=== PATIENT | male | born 1965 | race Caucasian/White ===

== ENCOUNTER 2016-11-19 06:26 | Inpatient (IN) | payer BC ==
[2016-11-19] MEDS ORDERED: Sodium Chloride 0.9% 1,000 ML IV ONE (06:40)
[2016-11-19] MEDS ORDERED: Ketorolac 30 MG/ML SDV IVPUSH ONE (06:40)
--- NOTE | 2016-11-19 06:55 | EDM.PDOC ---
ED HPI GENERAL MEDICAL PROBLEM - General Chief Complaint: Abdominal Pain Stated Complaint: ABDOMINAL PAIN Time Seen by Provider: 11/19/16 06:53 Source of Information: Reports: Patient - History of Present Illness INITIAL COMMENTS - FREE TEXT/NARRATIVE: HISTORY AND PHYSICAL: History of present illness: [] Patient presents with left lower quadrant pain for last 24 hours and decreased caliber stools, pain is 1/10 without movement any movement increases pain to 8/10 No fever nausea vomiting chills sweats no chest pain shortness breath headache dizziness palpitation no urine symptoms Review of systems: As per history of present illness and below otherwise all systems reviewed and negative. Past medical history: As per history of present illness and as reviewed below otherwise noncontributory. Surgical history: As per history of present illness and as reviewed below otherwise noncontributory. Social history: No reported history of drug or alcohol abuse. Family history: As per history of present illness and as reviewed below otherwise noncontributory. Physical exam: HEENT: Atraumatic, normocephalic, pupils reactive, negative for conjunctival pallor or scleral icterus, mucous membranes moist, throat clear, neck supple, nontender, trachea midline. Lungs: Clear to auscultation, breath sounds equal bilaterally, chest nontender. Heart: S1S2, regular, negative for clicks, rubs, or JVD. Abdomen: Soft, nondistended, nontender right lower quadrant however left lower quadrant exquisitely tender. Negative for masses or hepatosplenomegaly. Negative for costovertebral tenderness. Pelvis: Stable nontender. Genitourinary: Deferred. Rectal: Deferred. Extremities: Atraumatic, negative for cords or calf pain. Neurovascular unremarkable. Neuro: Awake, alert, oriented. Cranial nerves II through XII unremarkable. Cerebellum unremarkable. Motor and sensory unremarkable throughout. Exam nonfocal. Diagnostics: [] Lab as below CT abdomen pelvis with contrast Therapeutics: [] Toradol 30 mg IV 1 L normal saline bolus Cipro 400 mg IV Flagyl 500 mg IV Admitted to [facility] Impression: [] Lower quadrant pain Diverticulitis Concern for malignancy on CT Definitive disposition and diagnosis as appropriate pending reevaluation and review of above. Lower Abdomen Pain Score (Numeric/FACES): 6 - Related Data Allergies Allergy/AdvReac Type Severity Reaction Status Date / Time erythromycin base Allergy Rash Verified 05/04/14 13:20 [Erythromycin Base] Home Meds: Home Meds Pantoprazole Sodium 40 tab PO ACBREAKFAST 04/02/15 [History] Past Medical History Other Gastrointestinal History: Heartburn/GERD, full feeling at times, Heme + stool Other Musculoskeletal History: Fractured maybe some small bones toes, fingers never treated - Infectious Disease History Infectious Disease History: Reports: Chicken Pox - Past Surgical History Other Musculoskeletal Surgeries/Procedures:: middle finger disarticulation Social & Family History - Family History Family Medical History: Noncontributory - Tobacco Use Smoking Status *Q: Never Smoker Second Hand Smoke Exposure: No - Caffeine Use Caffeine Use: Reports: Coffee - Alcohol Use Days Per Week of Alcohol Use: 0 Number of Drinks Per Day: 0 Total Drinks Per Week: 0 - Recreational Drug Use Recreational Drug Use: No Drug Use in Last 12 Months: No ED ROS GENERAL - Review of Systems Review Of Systems: ROS reveals no pertinent complaints other than HPI. ED EXAM, GENERAL - Physical Exam Exam: See Below Course - Vital Signs Last Recorded V/S: Last Vital Signs Temp 36.6 C 11/19/16 06:30 Pulse 92 11/19/16 06:30 Resp 19 11/19/16 06:30 BP 120/78 11/19/16 06:30 Pulse Ox 92 L 11/19/16 06:30 - Orders/Labs/Meds Orders: Active Orders 24 hr Category Date Time Status Abdomen Pelvis w wo Cont [CT] Stat Exams 11/19/16 06:55 Taken Sodium Chloride 0.9% [Normal Saline] 1,000 ml Med 11/19/16 08:15 Ordered IV STAT metroNIDAZOLE/Normal Saline [Flagyl 500 MG in NS 100 ML Med 11/19/16 08:12 Ordered ] 500 mg Premix Bag 1 bag IV ONETIME Medication Orders Metronidazole 500 mg/ Premix 100 mls @ 100 mls/hr IV ONETIME ONE Stop: 11/19/16 09:11 Sodium Chloride (Normal Saline) 1,000 mls @ 125 mls/hr IV STAT BENITO Labs: Laboratory Tests 11/19/16 11/19/16 11/19/16 Range/Units 06:30 06:30 06:30 WBC 20.18 H (4.0-11.0) K/uL RBC 5.01 (4.50-5.90) M/uL Hgb 15.8 (13.0-17.0) g/dL Hct 45.5 (38.0-50.0) % MCV 90.8 (80.0-98.0) fL MCH 31.5 (27.0-32.0) pg MCHC 34.7 (31.0-37.0) g/dL RDW Std Deviation 45.8 (28.0-62.0) fl RDW Coeff of Dhruv 14 (11.0-15.0) % Plt Count 231 (150-400) K/uL MPV 9.10 (7.40-12.00) fL Neut % (Auto) 77.3 (48.0-80.0) % Lymph % (Auto) 8.7 L (16.0-40.0) % [place] % (Auto) 13.4 (0.0-15.0) % Eos % (Auto) 0.4 (0.0-7.0) % Baso % (Auto) 0.2 (0.0-1.5) % Neut # (Auto) 15.6 H (1.4-5.7) K/uL Lymph # (Auto) 1.8 (0.6-2.4) K/uL [place] # (Auto) 2.7 H (0.0-0.8) K/uL Eos # (Auto) 0.1 (0.0-0.7) K/uL Baso # (Auto) 0.1 (0.0-0.1) K/uL Nucleated RBC % 0.0 /100WBC Nucleated RBCs # 0 K/uL Sodium 137 (136-146) mmol/L Potassium 4.1 (3.5-5.1) mmol/L Chloride 107 (98-110) mmol/L Carbon Dioxide 20 L (21-31) mmol/L BUN 13 (6.0-23.0) mg/dL Creatinine 1.1 (0.6-1.5) mg/dL Est Cr Clr Drug Dosing 81.11 mL/min Estimated GFR (MDRD) > 60.0 ml/min Glucose 109 (60-110) mg/dL Calcium 9.6 (8.8-10.8) mg/dL Total Bilirubin 1.3 (0.1-1.5) mg/dL AST 15 (5-40) IU/L ALT 15 (8-54) IU/L Alkaline Phosphatase 66 (40-150) Total Protein 7.8 (6.0-8.0) g/dL Albumin 4.5 (3.5-5.0) g/dL Globulin 3.3 (2.0-3.5) g/dL Albumin/Globulin Ratio 1.4 (1.3-2.8) Lipase (7-80) U/L Urine Color YELLOW Urine Appearance CLEAR Urine pH 6.0 (5.0-8.0) Ur Specific [place] 1.025 (1.001-1.035) Urine Protein NEGATIVE (NEGATIVE) mg/dL Urine Glucose (UA) NEGATIVE (NEGATIVE) mg/dL Urine Ketones 15 H (NEGATIVE) mg/dL Urine Occult Blood SMALL H (NEGATIVE) Urine Nitrite NEGATIVE (NEGATIVE) Urine Bilirubin NEGATIVE (NEGATIVE) Urine Urobilinogen 0.2 (<2.0) EU/dL Ur Leukocyte Esterase NEGATIVE (NEGATIVE) Urine RBC 0-2 (0-2/HPF) Urine WBC 1-2 (0-5/HPF) Ur Epithelial Cells RARE (NONE-FEW) Urine Bacteria FEW (NEGATIVE) Urine Mucus LIGHT (NONE-MOD) 11/19/16 Range/Units 06:30 WBC (4.0-11.0) K/uL RBC (4.50-5.90) M/uL Hgb (13.0-17.0) g/dL Hct (38.0-50.0) % MCV (80.0-98.0) fL MCH (27.0-32.0) pg MCHC (31.0-37.0) g/dL RDW Std Deviation (28.0-62.0) fl RDW Coeff of Dhruv (11.0-15.0) % Plt Count (150-400) K/uL MPV (7.40-12.00) fL Neut % (Auto) (48.0-80.0) % Lymph % (Auto) (16.0-40.0) % [place] % (Auto) (0.0-15.0) % Eos % (Auto) (0.0-7.0) % Baso % (Auto) (0.0-1.5) % Neut # (Auto) (1.4-5.7) K/uL Lymph # (Auto) (0.6-2.4) K/uL [place] # (Auto) (0.0-0.8) K/uL Eos # (Auto) (0.0-0.7) K/uL Baso # (Auto) (0.0-0.1) K/uL Nucleated RBC % /100WBC Nucleated RBCs # K/uL Sodium (136-146) mmol/L Potassium (3.5-5.1) mmol/L Chloride (98-110) mmol/L Carbon Dioxide (21-31) mmol/L BUN (6.0-23.0) mg/dL Creatinine (0.6-1.5) mg/dL Est Cr Clr Drug Dosing mL/min Estimated GFR (MDRD) ml/min Glucose (60-110) mg/dL Calcium (8.8-10.8) mg/dL Total Bilirubin (0.1-1.5) mg/dL AST (5-40) IU/L ALT (8-54) IU/L Alkaline Phosphatase (40-150) Total Protein (6.0-8.0) g/dL Albumin (3.5-5.0) g/dL Globulin (2.0-3.5) g/dL Albumin/Globulin Ratio (1.3-2.8) Lipase 12 (7-80) U/L Urine Color Urine Appearance Urine pH (5.0-8.0) Ur Specific [place] (1.001-1.035) Urine Protein (NEGATIVE) mg/dL Urine Glucose (UA) (NEGATIVE) mg/dL Urine Ketones (NEGATIVE) mg/dL Urine Occult Blood (NEGATIVE) Urine Nitrite (NEGATIVE) Urine Bilirubin (NEGATIVE) Urine Urobilinogen (<2.0) EU/dL Ur Leukocyte Esterase (NEGATIVE) Urine RBC (0-2/HPF) Urine WBC (0-5/HPF) Ur Epithelial Cells (NONE-FEW) Urine Bacteria (NEGATIVE) Urine Mucus (NONE-MOD) Meds: Medications Generic Name Dose Route Start Last Admin Trade Name Freq PRN Reason Stop Dose Admin Metronidazole 500 mg/ Premix 100 mls @ 100 mls/hr 11/19/16 08:12 IV 11/19/16 09:11 ONETIME ONE Sodium Chloride 1,000 mls @ 125 mls/hr 11/19/16 08:15 Normal Saline IV STAT BENITO Discontinued Medications Generic Name Dose Route Start Last Admin Trade Name Freq PRN Reason Stop Dose Admin Sodium Chloride 1,000 mls @ 999 mls/hr 11/19/16 06:40 11/19/16 06:47 Normal Saline IV 11/19/16 07:40 999 mls/hr .Bolus ONE Administration Iopamidol 100 ml 11/19/16 07:03 11/19/16 07:05 Isovue Multipack-370 (76%) IVPUSH 11/19/16 07:04 100 ml ONETIME STA Administration Ketorolac Tromethamine 30 mg 11/19/16 06:40 11/19/16 06:47 Toradol IVPUSH 11/19/16 06:41 30 mg ONETIME ONE Administration Departure - Departure Time of Disposition: 08:16 Disposition: Admitted As Inpatient 65 Condition: fair Clinical Impression: Diverticulitis - Discharge Information Forms: ED Department Discharge - My Orders Last 24 Hours: My Active Orders 11/19/16 06:55 Abdomen Pelvis w wo Cont [CT] Stat 11/19/16 08:12 metroNIDAZOLE/Normal Saline [Flagyl 500 MG in NS 100 ML] 500 mg Premix Bag 1 bag IV ONETIME 11/19/16 08:15 Sodium Chloride 0.9% [Normal Saline] 1,000 ml IV STAT - Assessment/Plan Last 24 Hours: My Active Orders 11/19/16 06:55 Abdomen Pelvis w wo Cont [CT] Stat 11/19/16 08:12 metroNIDAZOLE/Normal Saline [Flagyl 500 MG in NS 100 ML] 500 mg Premix Bag 1 bag IV ONETIME 11/19/16 08:15 Sodium Chloride 0.9% [Normal Saline] 1,000 ml IV STAT
[2016-11-19] MEDS ORDERED: Iopamidol 755 MG/ML 500 ML Multipack Bottle IVPUSH STA (07:03)
[2016-11-19 07:08] LABS: CHLORIDE,CL 107 mmol/L (98-110); SODIUM,NA 137 mmol/L (136-146)
[2016-11-19] MEDS ORDERED: metroNIDAZOLE/Normal Saline 500 MG in Premix Bag 1 BAG IV ONE (08:12)
[2016-11-19] MEDS: Sodium Chloride 0.9% 1,000 ML IV SCH ×3 (09:13→22:28)
[2016-11-19] MEDS: Ciprofloxacin in D5W 400 MG in Premix Bag 1 BAG IV SCH ×4 (10:15→22:24)
[2016-11-19] MEDS ORDERED: Morphine 2 MG/ML Syringe IVPUSH PRN (13:56)
[2016-11-19] MEDS ORDERED: Ondansetron 4 MG/2 ML SDV IVPUSH PRN (13:56)
--- NOTE | 2016-11-19 14:05 | PCM.HP ---
H&P History of Present Illness - History of Present Illness Initial Comments - Free Text/Narative: 51 yo male who presents with several day history of lower abdominal pain, fevers and chills. He reports intermittent diarrhea and constipation. He was evaluated in the ED and noted to have a WBC of 20,180. CT scan of abdomen reported acute diverticultis of sigmoid colon. Lower Abdomen Pain Score (Numeric/FACES): 4 - Related Data Allergies/Adverse Reactions: Allergies Allergy/AdvReac Type Severity Reaction Status Date / Time erythromycin base Allergy Rash Verified 05/04/14 13:20 [Erythromycin Base] Home Medications: Home Meds Pantoprazole Sodium 40 tab PO ACBREAKFAST 04/02/15 [History] Past Medical History Other Gastrointestinal History: Heartburn/GERD, full feeling at times, Heme + stool Other Musculoskeletal History: Fractured maybe some small bones toes, fingers never treated - Infectious Disease History Infectious Disease History: Reports: Chicken Pox - Past Surgical History Other Musculoskeletal Surgeries/Procedures:: middle finger disarticulation Social & Family History - Family History Family Medical History: Noncontributory - Tobacco Use Smoking Status *Q: Never Smoker Second Hand Smoke Exposure: No - Caffeine Use Caffeine Use: Reports: Coffee, Soda - Alcohol Use Days Per Week of Alcohol Use: 0 Number of Drinks Per Day: 0 Total Drinks Per Week: 0 - Recreational Drug Use Recreational Drug Use: No Drug Use in Last 12 Months: No H&P Review of Systems - Review of Systems: Review Of Systems: See Below General: Reports: No Symptoms HEENT: Reports: No Symptoms Pulmonary: Reports: No Symptoms Cardiovascular: Reports: No Symptoms Gastrointestinal: Reports: Abdominal Pain. Denies: Black Stool, Bloody Stool, Hematemesis, Hematochezia, Melena, Mucous in Stool Genitourinary: Reports: No Symptoms Musculoskeletal: Reports: No Symptoms Skin: Reports: No Symptoms Psychiatric: Reports: No Symptoms Neurological: Reports: No Symptoms Hematologic/Lymphatic: Reports: No Symptoms Immunologic: Reports: No Symptoms Exam - Exam Exam: See Below - Vital Signs Vital Signs: Last Vital Signs Temp 37.3 C 11/19/16 12:00 Pulse 92 11/19/16 12:00 Resp 14 11/19/16 12:00 BP 107/69 11/19/16 12:00 Pulse Ox 95 11/19/16 12:00 Weight: 89.358 kg - Exam Neck: Supple, Trachea Midline, 2 Lungs: Clear to Auscultation, Normal Respiratory Effort Cardiovascular: Regular Rate, Regular Rhythm Abdomen: Normal Bowel Sounds, Soft, Tenderness (left lower quadrant). No: Rigidity, Rebound Extremities: Normal Inspection. No: Edema - Patient Data Result Diagrams: 11/19/16 06:30 11/19/16 06:30 *Q Meaningful Use (ADM) - VTE *Q VTE Criteria *Q: - Stroke *Q Stroke Criteria *Q: - AMI *Q AMI Criteria *Q: Problem List Initiated/Reviewed/Updated: Yes Orders Last 24hrs: Active Orders 24 hr Category Date Time Status Antiembolic Devices [RC] PER UNIT ROUTINE Care 11/19/16 13:59 Ordered Intake and Output [RC] QSHIFT Care 11/19/16 13:57 Ordered Oxygen Therapy [RC] PRN Care 11/19/16 13:56 Ordered Up ad Devora [RC] ASDIRECTED Care 11/19/16 13:56 Ordered VTE/DVT Education [RC] PER UNIT ROUTINE Care 11/19/16 13:56 Ordered Vital Signs [RC] Q4H Care 11/19/16 13:56 Ordered Clear Liquid Diet [DIET] Diet 11/19/16 Dinner Ordered BASIC METABOLIC PANEL,BMP [CHEM] AM Lab 11/20/16 05:11 Ordered BASIC METABOLIC PANEL,BMP [CHEM] AM Lab 11/21/16 05:11 Ordered BASIC METABOLIC PANEL,BMP [CHEM] AM Lab 11/22/16 05:11 Ordered CBC WITH AUTO DIFF [HEME] AM Lab 11/20/16 05:11 Ordered CBC WITH AUTO DIFF [HEME] AM Lab 11/21/16 05:11 Ordered CBC WITH AUTO DIFF [HEME] AM Lab 11/22/16 05:11 Ordered CULTURE STOOL + CAMPY+SHIGATOX [RM] Routine Lab 11/19/16 13:59 Uncollected Clostridium Difficile [CDIFF TOX A+B] [OP] Routine Lab 11/19/16 13:59 Uncollected Ciprofloxacin in D5W [Cipro in D5W 400 MG/200 ML] 400 Med 11/19/16 10:15 Active mg Premix Bag 1 bag IV Q12H Morphine Med 11/19/16 13:56 Ordered 2 mg IVPUSH Q3H PRN Ondansetron [Zofran] Med 11/19/16 13:56 Ordered 4 mg IVPUSH Q4H PRN metroNIDAZOLE/Normal Saline [Flagyl 500 MG in NS 100 ML Med 11/19/16 18:00 Active ] 500 mg Premix Bag 1 bag IV QID Sequential Compression Device [OM.PC] Per Unit Routine Oth 11/19/16 13:57 Ordered Resuscitation Status Routine Resus Stat 11/19/16 13:56 Ordered Medication Orders Sodium Chloride (Normal Saline) 1,000 mls @ 125 mls/hr IV STAT BENITO Last Admin: 11/19/16 10:16 Dose: 125 mls/hr Infusion: 11/19/16 10:16 Dose: 125 mls/hr Admin: 11/19/16 09:13 Dose: 125 mls/hr Ciprofloxacin/Dextrose 400 mg/ (Premix) 200 mls @ 200 mls/hr IV Q12H BENITO Last Admin: 11/19/16 10:15 Dose: 200 mls/hr Metronidazole 500 mg/ Premix 100 mls @ 100 mls/hr IV QID BENITO Morphine Sulfate (Morphine) 2 mg IVPUSH Q3H PRN PRN Reason: Pain (severe 7-10) Stop: 11/20/16 13:58 Ondansetron HCl (Zofran) 4 mg IVPUSH Q4H PRN PRN Reason: Nausea Assessment/Plan Comment:: 51 yo male admitted with acute sigmoid diverticulitis. We will treat with bowel rest, IV fluids and Ciprofloxacin and Flagyl. Radiologist recommend followup imaging to rule out underlying malignancy.
[2016-11-19] MEDS: metroNIDAZOLE/Normal Saline 500 MG in Premix Bag 1 BAG IV SCH ×2 (17:07→23:37)
[2016-11-20 06:08] LABS: CHLORIDE,CL 110 mmol/L (98-110); SODIUM,NA 136 mmol/L (136-146)
[2016-11-20] MEDS: metroNIDAZOLE/Normal Saline 500 MG in Premix Bag 1 BAG IV SCH ×4 (06:42→23:46)
--- NOTE | 2016-11-20 08:22 | PCM.PN ---
- General Info Date of Service: 11/20/16 Admission Dx/Problem (Free Text): Acute diverticulitis Subjective Update: Feeling slightly improved today. Had some nausea overnight, received Zofran and felt better. This morning he has tolerated CL well without nausea. He continues to have watery stools, not black or bloody in appearance. loom winder tender to LLQ. Denies chest pain or SOB. Functional Status: Reports: pain controlled, tolerating diet, ambulating, urinating - Review of Systems General: Reports: No Symptoms. Denies: Fever HEENT: Reports: no symptoms. Denies: sinus congestion, sore throat, rhinitis Pulmonary: Reports: no symptoms. Denies: shortness of breath Cardiovascular: Reports: No Symptoms. Denies: Chest Pain Gastrointestinal: Reports: Abdominal pain (improving, LLQ), Diarrhea, Flatus, Nausea (overnight, but has had none since midnight) Genitourinary: Reports: no symptoms. Denies: dysuria, frequency, burning Musculoskeletal: Reports: no symptoms Skin: Reports: no symptoms Neurological: Reports: No Symptoms Psychiatric: Reports: no symptoms - Patient Data Vitals - most recent: Last Vital Signs Temp 98.1 F 11/20/16 08:00 Pulse 77 11/20/16 08:00 Resp 20 11/20/16 08:00 BP 106/70 11/20/16 08:00 Pulse Ox 92 L 11/20/16 08:00 Weight - most recent: 89.358 kg I&O - last 24 hours: Intake & Output 11/19/16 11/20/16 11/20/16 22:59 06:59 14:59 Intake Total 1550 550 Output Total 250 1020 Balance 1300 -470 Lab Results last 24 hrs: Laboratory Results - last 24 hr 11/20/16 11/20/16 Range/Units 05:34 05:34 WBC 13.90 H (4.0-11.0) K/uL RBC 4.29 L (4.50-5.90) M/uL Hgb 13.2 (13.0-17.0) g/dL Hct 39.1 (38.0-50.0) % MCV 91.1 (80.0-98.0) fL MCH 30.8 (27.0-32.0) pg MCHC 33.8 (31.0-37.0) g/dL RDW Std Deviation 46.2 (28.0-62.0) fl RDW Coeff of Dhruv 14 (11.0-15.0) % Plt Count 226 (150-400) K/uL MPV 9.20 (7.40-12.00) fL Neut % (Auto) 72.8 (48.0-80.0) % Lymph % (Auto) 14.0 L (16.0-40.0) % [place] % (Auto) 12.2 (0.0-15.0) % Eos % (Auto) 0.9 (0.0-7.0) % Baso % (Auto) 0.1 (0.0-1.5) % Neut # (Auto) 10.1 H (1.4-5.7) K/uL Lymph # (Auto) 2.0 (0.6-2.4) K/uL [place] # (Auto) 1.7 H (0.0-0.8) K/uL Eos # (Auto) 0.1 (0.0-0.7) K/uL Baso # (Auto) 0.0 (0.0-0.1) K/uL Nucleated RBC % 0.0 /100WBC Nucleated RBCs # 0 K/uL Sodium 136 (136-146) mmol/L Potassium 3.9 (3.5-5.1) mmol/L Chloride 110 (98-110) mmol/L Carbon Dioxide 19 L (21-31) mmol/L BUN 10 (6.0-23.0) mg/dL Creatinine 1.0 (0.6-1.5) mg/dL Est Cr Clr Drug Dosing 89.22 mL/min Estimated GFR (MDRD) > 60.0 ml/min Glucose 97 (60-110) mg/dL Calcium 8.6 L (8.8-10.8) mg/dL Albert Results last 24 hrs: Microbiology 11/19/16 16:20 Clostridium difficile Toxin A&B (M) - Final Stool / Feces Negative for C.Diff Toxin/AG 11/19/16 16:20 Campylobacter Antigen Assay - Final Stool / Feces NEGATIVE CAMPYLOBACTER AG Med Orders - Current: Current Medications Sodium Chloride (Normal Saline) 1,000 mls @ 125 mls/hr IV STAT BENITO Last Admin: 11/19/16 22:28 Dose: 125 mls/hr Ciprofloxacin/Dextrose 400 mg/ (Premix) 200 mls @ 200 mls/hr IV Q12H BENITO Last Admin: 11/19/16 22:24 Dose: 200 mls/hr Metronidazole 500 mg/ Premix 100 mls @ 100 mls/hr IV QID BENITO Last Admin: 11/20/16 06:42 Dose: 100 mls/hr Morphine Sulfate (Morphine) 2 mg IVPUSH Q3H PRN PRN Reason: Pain (severe 7-10) Stop: 11/20/16 13:58 Ondansetron HCl (Zofran) 4 mg IVPUSH Q4H PRN PRN Reason: Nausea Last Admin: 11/19/16 23:36 Dose: 4 mg Discontinued Medications Sodium Chloride (Normal Saline) 1,000 mls @ 999 mls/hr IV .Bolus ONE Stop: 11/19/16 07:40 Last Admin: 11/19/16 06:47 Dose: 999 mls/hr Metronidazole 500 mg/ Premix 100 mls @ 100 mls/hr IV ONETIME ONE Stop: 11/19/16 09:11 Last Admin: 11/19/16 08:18 Dose: 100 mls/hr Iopamidol (Isovue Multipack-370 (76%)) 100 ml IVPUSH ONETIME STA Stop: 11/19/16 07:04 Last Admin: 11/19/16 07:05 Dose: 100 ml Ketorolac Tromethamine (Toradol) 30 mg IVPUSH ONETIME ONE Stop: 11/19/16 06:41 Last Admin: 11/19/16 06:47 Dose: 30 mg - Exam Quality Assessment: DVT prophylaxis. No: supplemental oxygen General: alert, oriented, cooperative HEENT: Pupils equal, Pupils reactive, EOMI, Mucous membr. moist/pink Neck: supple Lungs: Clear to auscultation, Normal respiratory effort Cardiovascular: Regular Rate, Regular Rhythm Abdomen: bowel sounds present, soft, no distension, tenderness (LLQ) Extremities: no edema, normal pulses Skin: warm, dry, intact Psy/Mental Status: alert, normal affect, normal mood - Problem List & Annotations (1) Diverticulitis SNOMED Code(s): 652625810 Code(s): K57.92 - DVTRCLI OF INTEST, PART UNSP, W/O PERF OR ABSCESS W/O BLEED Status: Acute Current Visit: Yes Qualifiers: Diverticulitis site: large intestine Diverticulitis bleeding: without bleeding Diverticulitis complication: without perforation or abscess Qualified Code(s): K57.32 - Diverticulitis of large intestine without perforation or abscess without bleeding (2) GERD (gastroesophageal reflux disease) SNOMED Code(s): 208081504 Code(s): K21.9 - GASTRO-ESOPHAGEAL REFLUX DISEASE WITHOUT ESOPHAGITIS Status: Chronic Current Visit: Yes Qualifiers: Esophagitis presence: esophagitis presence not specified Qualified Code(s) : K21.9 - Gastro-esophageal reflux disease without esophagitis - Problem List Review Problem List Initiated/Reviewed/Updated: Yes - Plan Plan:: 51 yo male admitted with acute sigmoid diverticulitis. 1. Acute sigmoid diverticulitis: Leukocytosis improving. Continue with IV fluids and Ciprofloxacin and Flagyl. Tolerating CL diet, will monitor this am and may start FL this afternoon. Radiologist recommend followup imaging to rule out underlying malignancy. Last colonoscopy was 2 years ago, and he reports this was negative. VTE prophylaxis: SCDs Dispo: 2 days
[2016-11-20] MEDS: Ciprofloxacin in D5W 400 MG in Premix Bag 1 BAG IV SCH ×4 (09:19→21:16)
[2016-11-20] MEDS: Sodium Chloride 0.9% 1,000 ML IV SCH ×2 (09:19→20:46)
--- NOTE | 2016-11-20 15:13 | CT ---
EXAM DATE: 11/19/16 PATIENT'S AGE: 51 Patient: EYAD EMANUEL Facility: [place], [place] Site . Site : 1965 Study: CT Abdomen/Pelvis W/ and W/O Cont [id number]/[id number] 7:42:39 AM Ordering Physician: Lucho White Final Report: INDICATION: Left lower quadrant abdominal pain. Comparison: None. Technique: CT abdomen and pelvis without intravenous contrast; CT abdomen and pelvis with intravenous contrast; coronal and sagittal reformats. Findings: Acute diverticulitis involving the sigmoid colon; long segment. No evidence of pelvic abscess. No pneumoperitoneum. No evidence of intestinal obstruction. Tiny amount of free fluid identified surrounding the sigmoid colon. No abnormal intra pulmonary nodular densities through the lung bases . Interstitial pulmonary fibrosis through the lung bases. Normal size cardiac silhouette without any evidence of pericardial effusion. Subcentimeter low-density dome of the liver as noted on slice 32 of series the 301 representing a cyst. No focal hepatic or splenic pathology . No pancreatic pathology. Gallbladder is unremarkable. No adrenal pathology. Symmetric perfusion of both the kidneys without any obstructive uropathy or perinephric pathology. No retroperitoneal lymphadenopathy. No evidence of abdominal ascites. Normal appendix. CT study of the pelvis is otherwise unremarkable. Impression: 1. Acute diverticulitis sigmoid colon; relatively long segment; without any evidence of intra-abdominal abscess or pneumoperitoneum. 2. Followup imaging is needed until the diverticulitis completely clears to rule out an underlying malignancy. 3. Tiny amount of free fluid in the pelvis. 4. Normal appendix. 5. No evidence of urinary tract obstruction or kidney stones. 6. Minimal interstitial pulmonary fibrosis through the lung bases. Please note that all CT scans at this facility use dose modulation, iterative reconstruction, and/or weight-based dosing when appropriate to reduce radiation dose to as low as reasonably achievable. Dictated by Clyde Davis MD @ Nov 19 2016 7:57AM (Electronic Signature) Report Signed by Proxy. [facility]
[2016-11-21 05:24] LABS: CHLORIDE,CL 115 mmol/L (98-110); SODIUM,NA 140 mmol/L (136-146)
[2016-11-21] MEDS: metroNIDAZOLE/Normal Saline 500 MG in Premix Bag 1 BAG IV SCH (05:28)
[2016-11-21] MEDS: Sodium Chloride 0.9% 1,000 ML IV SCH (07:23)
[2016-11-21 08:06] VITALS: BP 123/82
--- NOTE | 2016-11-21 08:57 | PCM.DCSUM1 ---
Discharge Summary - Hospital Course Brief History: This 51 year old male presented to the ED on 11/19/2016 with several day history of lower abdominal pain, fevers and chills. He reported intermittent diarrhea and constipation. He was evaluated in the ED and noted to have a WBC of 20,180. CT of abdomen reported acute diverticultis of sigmoid colon. - Discharge Data Discharge Date: 11/21/16 Discharge Disposition: Home, Self-Care 01 Condition: Good - Discharge Diagnosis/Problem(s) (1) Diverticulitis SNOMED Code(s): 824622041 ICD Code: K57.92 - DVTRCLI OF INTEST, PART UNSP, W/O PERF OR ABSCESS W/O BLEED Status: Acute Current Visit: Yes Qualifiers: Diverticulitis site: large intestine Diverticulitis bleeding: without bleeding Diverticulitis complication: without perforation or abscess Qualified Code(s): K57.32 - Diverticulitis of large intestine without perforation or abscess without bleeding (2) GERD (gastroesophageal reflux disease) SNOMED Code(s): 810631819 ICD Code: K21.9 - GASTRO-ESOPHAGEAL REFLUX DISEASE WITHOUT ESOPHAGITIS Status: Chronic Current Visit: Yes Qualifiers: Esophagitis presence: esophagitis presence not specified Qualified Code(s) : K21.9 - Gastro-esophageal reflux disease without esophagitis - Patient Instructions Diet: GI Soft/Low Residue/Low Fiber Showering/Bathing: May Shower Notify Provider of: Fever, Increased Pain, Swelling and Redness, Drainage, Nausea and/or Vomiting - Discharge Plan Prescriptions/Med Rec: Ciprofloxacin HCl [Cipro] 500 mg PO BID #24 tablet metroNIDAZOLE [Flagyl] 500 mg PO Q8H #36 tablet Home Medications: Home Meds Pantoprazole Sodium 40 tab PO ACBREAKFAST 04/02/15 [History] Ciprofloxacin HCl [Cipro] 500 mg PO BID #24 tablet 11/21/16 [Rx] metroNIDAZOLE [Flagyl] 500 mg PO Q8H #36 tablet 11/21/16 [Rx] Patient Handouts: Diverticulitis, Ciprofloxacin tablets, Low-Fiber Diet, Metronidazole tablets or capsules Referrals: Giovanni Beatty MD [Primary Care Provider] - 11/28/16 9:45 am Lucio Marlow MD [Physician] - 12/13/16 9:00 am - Discharge Summary/Plan Comment DC Time >30 min.: No Discharge Summary/Plan Comment: Discharge diagnoses: Acute sigmoid diverticulitis Jacques was admitted and treated with bowel rest, IVFs along with Ciprofloxacin and Flagyl. He improved gradually and leukocytosis resolved. Pain is well tolerated now and he is tolerating [place] diet. He is no longer nauseated and has been afebrile. We will discharge him home today with 12 more days of Flagyl and Ciprofloxacin. Will arrange follow up appointments with PCP, Dr. Beatty and General Surgeon Dr. Marlow. Radiologist recommended follow up CT scan after acute diverticulitis has cleared to completely rule out malignancy. Do recommended colonoscopy after acute flare of diverticulitis. He is to continue soft GI low fiber diet and slowly increasing to regular diet. Then restart high fiber diet in 2 weeks. - General Info Date of Service: 11/21/16 Admission Dx/Problem (Free Text: Acute diverticulitis Subjective Update: Denies any chest pain or SOB. Tolerating [place] diet, has slight tenderness to LLQ, but this continues to improve. Having slight diarrhea still, not bloody. No further nausea or fevers. Eager for discharge today. Functional Status: Reports: pain controlled, tolerating diet, ambulating, urinating - Review of Systems General: Reports: No Symptoms. Denies: Fever, Weakness, Fatigue HEENT: Reports: no symptoms. Denies: headaches, sinus congestion, sore throat Pulmonary: Reports: no symptoms. Denies: shortness of breath, cough, sputum Cardiovascular: Reports: No Symptoms. Denies: Chest Pain, Palpitations, Edema Gastrointestinal: Reports: Abdominal pain (only tenderness to palpation to LLQ) , Diarrhea, Flatus. Denies: Constipation, Nausea, Vomiting Genitourinary: Reports: no symptoms. Denies: dysuria, frequency, burning, pain , urgency Musculoskeletal: Reports: no symptoms Skin: Reports: no symptoms Neurological: Reports: No Symptoms Psychiatric: Reports: no symptoms - Patient Data Vitals - Most Recent: Last Vital Signs Temp 97.3 F 11/21/16 08:00 Pulse 80 11/21/16 08:00 Resp 20 11/21/16 08:00 BP 123/82 11/21/16 08:00 Pulse Ox 95 11/21/16 08:00 Weight - Most Recent: 89.358 kg I&O - Last 24 hours: Intake & Output 05/11/21/16 11/21/16 22:59 06:59 14:59 Intake Total 4005 890 1000 Output Total 1800 1800 Balance 2205 -910 1000 Lab Results - Last 24 hrs: Laboratory Results - last 24 hr 11/21/16 11/21/16 Range/Units 04:28 04:28 WBC 9.84 (4.0-11.0) K/uL RBC 4.02 L (4.50-5.90) M/uL Hgb 12.5 L (13.0-17.0) g/dL Hct 36.6 L (38.0-50.0) % MCV 91.0 (80.0-98.0) fL MCH 31.1 (27.0-32.0) pg MCHC 34.2 (31.0-37.0) g/dL RDW Std Deviation 46.3 (28.0-62.0) fl RDW Coeff of Dhruv 14 (11.0-15.0) % Plt Count 231 (150-400) K/uL MPV 9.10 (7.40-12.00) fL Neut % (Auto) 64.8 (48.0-80.0) % Lymph % (Auto) 19.6 (16.0-40.0) % [place] % (Auto) 12.7 (0.0-15.0) % Eos % (Auto) 2.3 (0.0-7.0) % Baso % (Auto) 0.6 (0.0-1.5) % Neut # (Auto) 6.4 H (1.4-5.7) K/uL Lymph # (Auto) 1.9 (0.6-2.4) K/uL [place] # (Auto) 1.3 H (0.0-0.8) K/uL Eos # (Auto) 0.2 (0.0-0.7) K/uL Baso # (Auto) 0.1 (0.0-0.1) K/uL Nucleated RBC % 0.0 /100WBC Nucleated RBCs # 0 K/uL Sodium 140 (136-146) mmol/L Potassium 4.2 (3.5-5.1) mmol/L Chloride 115 H (98-110) mmol/L Carbon Dioxide 17 L (21-31) mmol/L BUN 9 (6.0-23.0) mg/dL Creatinine 0.8 (0.6-1.5) mg/dL Est Cr Clr Drug Dosing 111.53 mL/min Estimated GFR (MDRD) > 60.0 ml/min Glucose 90 (60-110) mg/dL Calcium 8.3 L (8.8-10.8) mg/dL KANDACE Results - Last 24 hrs: Microbiology 11/19/16 16:20 Stool Culture - Final Stool / Feces NO SALMONELLA, SHIGELLA,OR E.COLI O157 ISOLATED Campylobacter Antigen Assay - Final NEGATIVE CAMPYLOBACTER AG - Final NEGATIVE FOR SHIGA TOXIN 1 - Final NEGATIVE FOR SHIGA TOXIN 2 Med Orders - Current: Current Medications Sodium Chloride (Normal Saline) 1,000 mls @ 125 mls/hr IV STAT [facility] Last Admin: 11/21/16 07:23 Dose: 125 mls/hr Ciprofloxacin/Dextrose 400 mg/ (Premix) 200 mls @ 200 mls/hr IV Q12H [facility] Last Admin: 11/20/16 21:16 Dose: 200 mls/hr Metronidazole 500 mg/ Premix 100 mls @ 100 mls/hr IV QID [facility] Last Admin: 11/21/16 05:28 Dose: 100 mls/hr Ondansetron HCl (Zofran) 4 mg IVPUSH Q4H PRN PRN Reason: Nausea Last Admin: 11/19/16 23:36 Dose: 4 mg Discontinued Medications Sodium Chloride (Normal Saline) 1,000 mls @ 999 mls/hr IV .Bolus ONE Stop: 11/19/16 07:40 Last Admin: 11/19/16 06:47 Dose: 999 mls/hr Metronidazole 500 mg/ Premix 100 mls @ 100 mls/hr IV ONETIME ONE Stop: 11/19/16 09:11 Last Admin: 11/19/16 08:18 Dose: 100 mls/hr Iopamidol (Isovue Multipack-370 (76%)) 100 ml IVPUSH ONETIME STA Stop: 11/19/16 07:04 Last Admin: 11/19/16 07:05 Dose: 100 ml Ketorolac Tromethamine (Toradol) 30 mg IVPUSH ONETIME ONE Stop: 11/19/16 06:41 Last Admin: 11/19/16 06:47 Dose: 30 mg Morphine Sulfate (Morphine) 2 mg IVPUSH Q3H PRN PRN Reason: Pain (severe 7-10) Stop: 11/20/16 13:58 - Exam General: Reports: alert, oriented, cooperative Neck: Reports: supple Lungs: Reports: Clear to auscultation, Normal respiratory effort Cardiovascular: Reports: Regular Rate, Regular Rhythm Abdomen: Reports: bowel sounds present, soft, no distension, tenderness (slight noted to LLQ) Extremities: Reports: no edema Skin: Reports: warm, dry, intact Neurological: Reports: no new focal deficit Psy/Mental Status: Reports: alert, normal affect, normal mood *Q Meaningful Use (DIS) - VTE *Q VTE Criteria *Q: - Stroke *Q Stroke Criteria *Q: - AMI *Q AMI Criteria *Q:
== END 2016-11-21 10:50 | disposition home or self-care (01) | DRG 244 ==
LOC: MW.ED 06:26 → MW.MS 08:23
PROVIDERS: ADMIT Internal Medicine; ATTEND Internal Medicine
DX: K57.32 Diverticulitis of large intestine without perforation or abscess without bleeding (principal); K21.9 Gastro-esophageal reflux disease without esophagitis; Z79.899 Other long term (current) drug therapy; Z88.1 Allergy status to other antibiotic agents
CPT/HCPCS: 36415; 74178; 74178-26; 80048; 80053; 81001; 83690; 85025; 87046; 87324; 87899; 96361; 96365; 96375; 99285; 99285-25; J0744; J1885; J2405; J7040; Q9967

== ENCOUNTER 2017-02-13 11:21 | Day surgery (SDC) | payer BC ==
--- NOTE | 2017-02-13 11:09 | PCM.PREANE ---
Preanesthetic Assessment - Anesthesia/Transfusion/Family Hx Anesthesia History: Prior Anesthesia Without Reaction Other Type of Anesthesia Reaction Comment: Denies any known problem in past Family History of Anesthesia Reaction: No Transfusion History: No Prior Transfusion(s) - Review of Systems General: No Symptoms Pulmonary: No Symptoms Cardiovascular: No Symptoms Gastrointestinal: No Symptoms Neurological: No Symptoms Other: Reports: None - Physical Assessment NPO Status Date: 02/12/17 Height: 1.78 m Weight: 90.265 kg ASA Class: 2 Mental Status: Alert & Oriented x3 Dentition: Reports: Serena(s) ROM/Head Extension: Full Lungs: Clear to Auscultation, Normal Respiratory Effort Cardiovascular: Regular Rate, Regular Rhythm - Allergies Allergies/Adverse Reactions: Allergies Allergy/AdvReac Type Severity Reaction Status Date / Time erythromycin base Allergy Rash Verified 02/07/17 17:24 [Erythromycin Base] - Acknowledgements Anesthesia Type Planned: MAC Pt an Appropriate Candidate for the Planned Anesthesia: Yes Alternatives and Risks of Anesthesia Discussed w Pt/Guardian: Yes Pt/Guardian Understands and Agrees with Anesthesia Plan: Yes PreAnesthesia Questionnaire Other HEENT History: uses reading glasses Respiratory History: Reports: Asthma Other Respiratory History: allergy induced Gastrointestinal History: Reports: Diverticulosis, GERD Other Gastrointestinal History: Heartburn/GERD, full feeling at times, Heme + stool Genitourinary History: Reports: None Musculoskeletal History: Reports: None Other Musculoskeletal History: Fractured maybe some small bones toes, fingers never treated Neurological History: Reports: None Psychiatric History: Reports: None Endocrine/Metabolic History: Reports: None Hematologic History: Reports: None Immunologic History: Reports: None Oncologic (Cancer) History: Reports: None Dermatologic History: Reports: None - Infectious Disease History Infectious Disease History: Reports: Chicken Pox - Past Surgical History Head Surgeries/Procedures: Reports: None HEENT Surgical History: Reports: None Respiratory Surgical History: Reports: None GI Surgical History: Reports: Colonoscopy, EGD Male Surgical History: Reports: Vasectomy Endocrine Surgical History: Reports: None Neurological Surgical History: Reports: None Musculoskeletal Surgical History: Reports: Arthroscopic Knee, Other (See Below) Other Musculoskeletal Surgeries/Procedures:: 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 - SUBSTANCE USE Smoking Status *Q: Never Smoker Second Hand Smoke Exposure: No Days Per Week of Alcohol Use: 0 Number of Drinks Per Day: 0 Total Drinks Per Week: 0 Recreational Drug Use History: No - HOME MEDS Home Medications: Home Meds Pantoprazole Sodium 40 tab PO ACBREAKFAST 04/02/15 [History] Fluticasone/Salmeterol [Advair Diskus 250-50] 1 puff INH BID PRN 02/07/17 [ History] - CURRENT (IN HOUSE) MEDS Current Meds: Current Medications Lactated Ringer's (Ringers, Lactated) 1,000 mls @ 125 mls/hr IV ASDIRECTED BENITO Discontinued Medications Fentanyl (Sublimaze) Confirm Administered Dose 100 mcg .ROUTE .STK-MED ONE Stop: 02/13/17 08:13 Lidocaine (Xylocaine-Mpf 2%) Confirm Administered Dose 5 ml .ROUTE .STK-MED ONE Stop: 02/13/17 08:13 Midazolam HCl (Versed 1 Mg/Ml) Confirm Administered Dose 2 mg .ROUTE .STK-MED ONE Stop: 02/13/17 08:13 Propofol (Diprivan 20 Ml) Confirm Administered Dose 400 mg .ROUTE .STK-MED ONE Stop: 02/13/17 08:13
[~2017-02-13 11:21] MED LIST: Lactated Ringers 1,000 ML IV SCH; Lidocaine 2% 5 ML SDV ONE; Midazolam 1 MG/ML 2 ML SDV ONE; Propofol 200 MG/20 ML SDV ONE; fentaNYL 100 MCG/2 ML SDV ONE
[2017-02-13] MEDS ORDERED: Propofol 200 MG/20 ML SDV ONE ×3 (12:18→12:37)
--- NOTE | 2017-02-13 13:07 | PCM.OPNOTE ---
- General Post-Op/Procedure Note Date of Surgery/Procedure: 02/13/17 Operative Procedure(s): colonoscopy w bx Findings: dict [id number] Pre Op Diagnosis: diverticulitis Post-Op Diagnosis: colon polyp Anesthesia Technique: Moderate Sedation Primary Surgeon: Lucio Marlow Pathology: 2 X 3 mm sessile polyp at 30 cm when scope out or 70 cm when scope in; Complications: None Condition: Good
[2017-02-13 13:45] VITALS: BP 128/87
--- NOTE | 2017-02-13 13:54 | PCM.POSTAN ---
POST ANESTHESIA ASSESSMENT - MENTAL STATUS Mental Status: Alert, Oriented - RESPIRATORY Respiratory Status: Respiratory Rate WNL, Airway Patent, O2 Saturation Stable - CARDIOVASCULAR CV Status: Pulse Rate WNL, Blood Pressure Stable - GASTROINTESTINAL GI Status: No Symptoms - PAIN Pain Score: 0 - POST OP HYDRATION Hydration Status: Adequate & Stable
--- NOTE | 2017-02-13 13:55 | PCM48HPAN ---
Post Anesthesia Note - EVALUATION WITHIN 48HRS OF ANESTHETIC Vital Signs in Normal Range: Yes Patient Participated in Evaluation: Yes Respiratory Function Stable: Yes Airway Patent: Yes Cardiovascular Function Stable: Yes Hydration Status Stable: Yes Pain Control Satisfactory: Yes Nausea and Vomiting Control Satisfactory: Yes Mental Status Recovered: Yes
--- NOTE | 2017-02-13 14:48 | OR ---
SURGEON: Lucio Marlow MD DATE OF PROCEDURE: 02/13/2017 PREOPERATIVE DIAGNOSIS: Diverticulitis, resolving. POSTOPERATIVE DIAGNOSIS: Diverticulosis. PROCEDURE PERFORMED: Colonoscopy with biopsy. DESCRIPTION OF PROCEDURE: The patient was taken to the endoscopy room. A time out was called, patient identified, and procedure identified. Diprivan was then administrated. Patient went from awake to sleep, hearing doctor talking or door closing is normal. Perineum inspection and digital examination were then performed. A well- lubricated colonoscope was gently inserted through the rectum, advanced past the rectosigmoid junction, the descending colon, splenic flexure, transverse colon, hepatic flexure, ascending colon, arrived to the cecum. Cecum was identified as dictated in the finding. Then the scope was carefully withdrawn while attention was paid to the mucosal surface for any abnormality. Air will be sucked out during the scope withdrawal. At the rectum, retroflexed to examine any rectal diseases, fistula or hemorrhoids. During mucosal examination, abnormality or polyp was noted; picture taken and biopsy performed. Patient tolerated procedure well. There were no intraoperative complications, and Dr. Marlow was present throughout the whole procedure. FINDINGS: 1. The patient is easily sedated with MOTEL KEEPER and Diprivan. The patient is soundly snoring. 2. The patient's bowel prep was average with large amount of bubbles obscuring the mucosa and the study is compromised because of the bubbles. 3. The patient's colon was rather redundant in the sigmoid requiring several maneuvers of the patient and moved the patient to the back and otherwise in order to go to the cecum. Cecum indicated by ileocecal fold, one-to-one indentation, light immittance, and appendix orifice the mucosa, same examined, upon scope pulling out with constant irrigation, and the patient has moderate amount of diverticulosis on the left colon. No signs or symptoms of diverticulitis, inflammation, stricture, ulceration, bleeding, or AV malformation. The patient's diverticulosis stretches all the way to the splenic flexure and also 2 small polyps right in the area of 70 cm when the scope go in and was removed with cold biopsy forceps and also it is at the same spot as 30/35 cm when the scope come off. Two 3 mm sessile polyps removed with biopsy forceps. Otherwise, the whole colon do not have other growth, mass, inflammation, or stricture, and the patient has external hemorrhoid and mild internal hemorrhoids. The patient would benefit from repeat colonoscopy in 3-5 years from today depends on the pathology report of the polyp or if the patient clinically indicated otherwise. As always, thank you for the kind referral. CLAIRE / STEPHANIE /[id number]
== END 2017-02-13 14:05 | disposition home or self-care (01) ==
LOC: MW.SDS 11:21
PROVIDERS: ATTEND Surgery
PROC: 0DBG8ZX Excision of Left Large Intestine, Via Natural or Artificial Opening Endoscopic, Diagnostic (ICD-10-PCS; principal; 2017-02-13)
DX: D12.4 Benign neoplasm of descending colon (principal); K57.30 Diverticulosis of large intestine without perforation or abscess without bleeding; K64.4 Residual hemorrhoidal skin tags; K64.8 Other hemorrhoids; K21.9 Gastro-esophageal reflux disease without esophagitis; J45.20 Mild intermittent asthma, uncomplicated; Z88.1 Allergy status to other antibiotic agents; Z79.899 Other long term (current) drug therapy; Z98.52 Vasectomy status; Z98.890 Other specified postprocedural states
CPT/HCPCS: 45380; 88305; J2250; J3010; J7120; 00810; J2704

== ENCOUNTER 2019-04-30 07:26 | Day surgery (SDC) | payer BC ==
[~2019-04-30 07:26] MED LIST changes: -Lidocaine 2% 5 ML SDV ONE; -Midazolam 1 MG/ML 2 ML SDV ONE; -Propofol 200 MG/20 ML SDV ONE; -fentaNYL 100 MCG/2 ML SDV ONE
[2019-04-30] MEDS ORDERED: Propofol 200 MG/20 ML SDV ONE ×2 (07:29→08:18)
[2019-04-30] MEDS ORDERED: Ondansetron 4 MG/2 ML SDV ONE (07:29)
[2019-04-30] MEDS ORDERED: fentaNYL 100 MCG/2 ML SDV ONE (07:29)
[2019-04-30] MEDS ORDERED: Midazolam 1 MG/ML 2 ML SDV ONE (07:29)
--- NOTE | 2019-04-30 08:13 | PCM.PREANE ---
Preanesthetic Assessment - Anesthesia/Transfusion/Family Hx Anesthesia History: Prior Anesthesia Without Reaction Other Type of Anesthesia Reaction Comment: Denies any known problem in past Family History of Anesthesia Reaction: No Transfusion History: No Prior Transfusion(s) Intubation History: Unknown - Review of Systems General: No Symptoms Pulmonary: No Symptoms Cardiovascular: No Symptoms Gastrointestinal: Other (heme + stool,dysphagia (improving), h/o colon polyp, GERD, h/o diverticulitis) Neurological: No Symptoms Other: Reports: None - Physical Assessment NPO Status Date: 04/29/19 NPO Status Time: 21:00 Vital Signs: Last Vital Signs Temp 36.2 C 04/30/19 07:35 Pulse 93 04/30/19 07:35 Resp 16 04/30/19 07:35 BP 118/81 04/30/19 07:35 Pulse Ox 94 L 04/30/19 07:35 Height: 5 ft 10 in Weight: 92.533 kg ASA Class: 2 Mental Status: Alert & Oriented x3 Airway Class: Mallampati = 2 Dentition: Reports: Normal Dentition Thyro-Mental Finger Breadths: 3 Mouth Opening Finger Breadths: 3 ROM/Head Extension: Full Lungs: Clear to Auscultation, Normal Respiratory Effort Cardiovascular: Regular Rate, Regular Rhythm - Allergies Allergies/Adverse Reactions: Allergies Allergy/AdvReac Type Severity Reaction Status Date / Time erythromycin base Allergy Rash Verified 04/25/19 07:54 [Erythromycin Base] - Blood Blood Available: No - Anesthesia Plan Pre-Op Medication Ordered: None - Acknowledgements Anesthesia Type Planned: MAC Pt an Appropriate Candidate for the Planned Anesthesia: Yes Alternatives and Risks of Anesthesia Discussed w Pt/Guardian: Yes Pt/Guardian Understands and Agrees with Anesthesia Plan: Yes PreAnesthesia Questionnaire HEENT History: Reports: Other (See Below) Other HEENT History: uses reading glasses Cardiovascular History: Reports: None Respiratory History: Reports: Asthma (moderate) Other Respiratory History: allergy induced Gastrointestinal History: Reports: Colon Polyp, Diverticulosis, GERD Other Gastrointestinal History: hx diverticulitis Genitourinary History: Reports: None Musculoskeletal History: Reports: None Neurological History: Reports: None Psychiatric History: Reports: None Endocrine/Metabolic History: Reports: None Hematologic History: Reports: None Immunologic History: Reports: None Oncologic (Cancer) History: Reports: None Dermatologic History: Reports: None - Infectious Disease History Infectious Disease History: Reports: Chicken Pox - Past Surgical History Head Surgeries/Procedures: Reports: None HEENT Surgical History: Reports: None Cardiovascular Surgical History: Reports: None Respiratory Surgical History: Reports: None GI Surgical History: Reports: Colonoscopy, EGD Male Surgical History: Reports: Vasectomy Endocrine Surgical History: Reports: None Neurological Surgical History: Reports: None Musculoskeletal Surgical History: Reports: Arthroscopic Knee, Other (See Below) Other Musculoskeletal Surgeries/Procedures:: 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 Oncologic Surgical History: Reports: None Dermatological Surgical History: Reports: None - SUBSTANCE USE Smoking Status *Q: Never Smoker - HOME MEDS Home Medications: Home Meds Pantoprazole Sodium 40 tab PO ACBREAKFAST 04/02/15 [History] Fluticasone/Salmeterol [Advair Diskus 250-50] 1 puff INH BID 02/07/17 [History] Albuterol Sulfate [Proair Hfa] 1 - 2 puff INH ASDIRECTED PRN 04/25/19 [History] - CURRENT (IN HOUSE) MEDS Current Meds: Current Medications Lactated Ringer's (Ringers, Lactated) 1,000 mls @ 125 mls/hr IV ASDIRECTED BENITO Last Admin: 04/30/19 07:45 Dose: 125 mls/hr Discontinued Medications Fentanyl (Sublimaze) Confirm Administered Dose 100 mcg .ROUTE .STK-MED ONE Stop: 04/30/19 07:30 Lidocaine HCl (Xylocaine-Mpf 1%) Confirm Administered Dose 5 ml .ROUTE .STK-MED ONE Stop: 04/30/19 07:30 Midazolam HCl (Versed 1 Mg/Ml) Confirm Administered Dose 2 mg .ROUTE .STK-MED ONE Stop: 04/30/19 07:30 Ondansetron HCl (Zofran) Confirm Administered Dose 4 mg .ROUTE .STK-MED ONE Stop: 04/30/19 07:30 Propofol (Diprivan 20 Ml) Confirm Administered Dose 200 mg .ROUTE .STK-MED ONE Stop: 04/30/19 07:30
--- NOTE | 2019-04-30 09:28 | PCM.OPNOTE ---
- General Post-Op/Procedure Note Date of Surgery/Procedure: 04/30/19 Operative Procedure(s): egd w bx. colonoscopy w snare Findings: see dict [id number] Pre Op Diagnosis: hx colon polyp/diverticulitis; gerd Post-Op Diagnosis: Same Anesthesia Technique: Moderate Sedation Primary Surgeon: Lucio Marlow Pathology: egd bx colon polyp at 25, cold bx, polyp at 20, snare polypectomy Complications: None Condition: Good
--- NOTE | 2019-04-30 09:44 | PCM.POSTAN ---
POST ANESTHESIA ASSESSMENT - MENTAL STATUS Mental Status: Alert, Oriented - VITAL SIGNS Vital Signs: Last Vital Signs Temp 36.2 C 04/30/19 07:35 Pulse 65 04/30/19 09:36 Resp 15 04/30/19 09:36 BP 107/74 04/30/19 09:36 Pulse Ox 96 04/30/19 09:36 - RESPIRATORY Respiratory Status: Respiratory Rate WNL, Airway Patent, O2 Saturation Stable - CARDIOVASCULAR CV Status: Pulse Rate WNL, Blood Pressure Stable - GASTROINTESTINAL GI Status: No Symptoms - PAIN Pain Score: 0 - POST OP HYDRATION Hydration Status: Adequate & Stable - OBSERVATIONS Free Text/Narrative:: no anesthesia problems
[2019-04-30 09:53] VITALS: BP 121/72; PULSE 62
--- NOTE | 2019-04-30 10:14 | PCM48HPAN ---
Post Anesthesia Note - EVALUATION WITHIN 48HRS OF ANESTHETIC Vital Signs in Normal Range: Yes Patient Participated in Evaluation: Yes Respiratory Function Stable: Yes Airway Patent: Yes Cardiovascular Function Stable: Yes Hydration Status Stable: Yes Pain Control Satisfactory: Yes Nausea and Vomiting Control Satisfactory: Yes Mental Status Recovered: Yes Vital Signs: Last Vital Signs Temp 36.8 C 04/30/19 09:45 Pulse 62 04/30/19 09:45 Resp 16 04/30/19 09:45 BP 121/72 04/30/19 09:45 Pulse Ox 94 L 04/30/19 09:45 - COMMENTS/OBSERVATIONS Free Text/Narrative:: no anesthesia problems
--- NOTE | 2019-04-30 11:34 | OR ---
SURGEON: Lucio Marlow MD DATE OF PROCEDURE: 04/30/2019 PREOPERATIVE DIAGNOSIS: History of colon polyp and diverticulitis and acid reflux. PROCEDURES PERFORMED: Esophagogastroduodenoscopy with biopsy and colonoscopy with snare polypectomy. DESCRIPTION OF PROCEDURE: EGD: The patient was taken to the endoscopy room, and with the COLLEGE PROFESSOR, Diprivan was administered. A well-lubricated EGD scope was gently inserted through the oropharynx, down the esophagus, passing through the gastroesophageal junction, into the stomach. The mucosa was examined upon the passage. Any etiology will be noted. Once in the stomach, we continued to advance to the distal antrum, passed through the pylorus into the second portion of the duodenum. Again, the mucosa was examined for any abnormality and etiology. The scope was then retrieved back to the stomach and then retroflexed to look at the fundus of the stomach. If a biopsy was indicated, we will biopsy the antrum, body, and gastroesophageal junction. The air will be sucked out while the scope is retrieved to reduce the patient's discomfort. The patient tolerated the procedure well. There were no intraoperative complications. Dr. Marlow was present through the whole procedure. Prior to surgery, a time-out had been called, the patient identified, procedure identified and antibiotic administered. The patient was taken to the endoscopy room. A time out was called, patient identified, and procedure identified. Diprivan was then administrated. Patient went from awake to sleep, hearing doctor talking or door closing is normal. Perineum inspection and digital examination were then performed. A well- lubricated colonoscope was gently inserted through the rectum, advanced past the rectosigmoid junction, the descending colon, splenic flexure, transverse colon, hepatic flexure, ascending colon, arrived to the cecum. Cecum was identified as dictated in the finding. Then the scope was carefully withdrawn while attention was paid to the mucosal surface for any abnormality. Air will be sucked out during the scope withdrawal. At the rectum, retroflexed to examine any rectal diseases, fistula or hemorrhoids. During mucosal examination, abnormality or polyp encountered. Using snare equipment, the abnormality or the polyp was then snared off using electrocautery. The patient tolerated procedure well. There were no intraoperative complications, and Dr. Marlow was present throughout the whole procedure. FINDINGS: EGD findings: 1. The patient is easily sedated with COLLEGE PROFESSOR and Diprivan, the patient is soundly snoring. 2. Oropharynx and proximal esophagus are free of disease, stricture, inflammation. Distal esophagus at GE junction at 40 shows very mild salmon- colored change, suggests mild to no acid reflux. Stomach rugae are normal in appearance. Antrum is normal in appearance and duodenum is grossly normal. Retroflexed look at the fundus of the stomach, there is no hiatal hernia. Biopsy done at antrum, body, GE junction at 40 and sucked out the gas while scope pulling out. During the whole study, there is no blood, ulcer, bile, and food particle observed. Colonoscopy findings: 1. The patient is easily sedated with COLLEGE PROFESSOR and Diprivan, the patient is soundly snoring. 2. Bowel prep is average to above average, very little liquid stool, no semi- formed stool, no stool ball. 3. Colon is rather straightforward. Cecum indicated by ileocecal fold, one-to- one indentation, appendiceal orifice. ScopeGuide is pointing south. Light emittance is not observed. Mucosa examined upon scope pulling out. The patient has mild diverticulosis at the left colon. No signs or symptoms of diverticulitis. The patient has two polyps, one sessile at distance 25, biopsied, removed with cold biopsy forceps. Another one at 20 and removed with snare polypectomy, captured and sent for pathology. The patient has mild internal hemorrhoids and mild external hemorrhoids. The patient would benefit from repeat colonoscopy in 3 years from today because of history of colon polyp and also a polyp at this time or if clinically indicated otherwise. CLAIRE / STEPHANIE /[id number]
== END 2019-04-30 10:18 | disposition home or self-care (01) ==
LOC: MW.SDS 07:26
PROVIDERS: ATTEND Surgery
DX: Z12.11 Encounter for screening for malignant neoplasm of colon (principal); K21.0 Gastro-esophageal reflux disease with esophagitis; K63.5 Polyp of colon; K57.30 Diverticulosis of large intestine without perforation or abscess without bleeding; K64.8 Other hemorrhoids; K64.4 Residual hemorrhoidal skin tags; J45.40 Moderate persistent asthma, uncomplicated; Z88.1 Allergy status to other antibiotic agents
CPT/HCPCS: 43239; 45385; 88305; 88312; J2001; J2250; J2405; J2704; J3010; J7120; 00813

== ENCOUNTER 2021-01-05 21:07 | Emergency (ER) | payer BC ==
[2021-01-05] MEDS ORDERED: Ondansetron 4 MG/2 ML SDV IVPUSH ONE (21:28)
[2021-01-05] MEDS ORDERED: Sodium Chloride 0.9% 10 ML Syringe FLUSH PRN (21:28)
[2021-01-05] MEDS ORDERED: Sodium Chloride 0.9% 2.5 ML Syringe FLUSH PRN (21:28)
[2021-01-05] MEDS ORDERED: Sodium Chloride 0.9% 1,000 ML IV ONE (21:30)
--- NOTE | 2021-01-05 21:32 | EDM.PDOC ---
ED HPI GENERAL MEDICAL PROBLEM - General Chief Complaint: Gastrointestinal Problem Stated Complaint: NAUSEA VOMITTING Time Seen by Provider: 01/05/21 21:23 - History of Present Illness INITIAL COMMENTS - FREE TEXT/NARRATIVE: History of present illness: [] The patient had abdominal pain and distention beginning last night. He has been nauseated all day but not vomited. He has no appetite today. He had multiple liquid stools in the morning. He is continue to have some loose stools this afternoon. He has a history for 5 years ago of diverticulitis and was admitted for an entire week. He has had no surgery on his abdomen or genitals. Review of systems: As per history of present illness and below otherwise all systems reviewed and negative. Past medical history: As per history of present illness and as reviewed below otherwise noncontributory. Surgical history: As per history of present illness and as reviewed below otherwise noncontributory. Social history: No reported history of drug or alcohol abuse. Family history: As per history of present illness and as reviewed below otherwise noncontributory. Physical exam: Constitutional - well developed, well-nourished and in no acute distress HEENT - normocephalic, no evidence of trauma - external nose and mouth normal - no mass in neck and no JVD - mucosae moist EYES - full EOM, PERRL, no icterus - no evidence of inflammation, injection, or drainage Respiratory - no respiratory distress, equal bilateral expansion, lungs clear to auscultation and no abnormal lung sounds Cardiovascular - Regular Rhythm with S1 and S2 appreciated and no murmur, gallop or rub. GI - abdomen soft without distension or organomegaly -extremely hyperactive bowel sounds - no guard or rebound but diffuse vague minimal tenderness especially in the right lower quadrant. normal external genitalia with no evidence of hernia Musculoskeletal no gross deformity of long bones or joints - no tenderness, swelling or edema Neurologic - Alert and oriented times four - CN II-XII grossly intact - motor sensory and coordination symmetrically normal Psychiatric - appropriate mood and affect with normal thought content Hematologic - No petechiae or purpura - mucosa appropriate color and sclera not pale - normal nail bed color and refill Integument - no rash or evidence of trauma - normal turgor Diagnostics: [] Therapeutics: [] Impression: [] Plan: [] Definitive disposition and diagnosis as appropriate pending reevaluation and review of above. right abdomen Pain Score (Numeric/FACES): 8 - Related Data Allergies Allergy/AdvReac Type Severity Reaction Status Date / Time erythromycin base Allergy Rash Verified 01/05/21 21:19 [Erythromycin Base] Home Meds: Home Meds Pantoprazole Sodium 40 tab PO ACBREAKFAST 04/02/15 [History] Fluticasone/Salmeterol [Advair Diskus 250-50] 1 puff INH BID 02/07/17 [History] Albuterol Sulfate [Proair Hfa] 1 - 2 puff INH ASDIRECTED PRN 04/25/19 [History] Ondansetron [Zofran ODT] 4 mg PO Q6H PRN #10 tab.dis 01/05/21 [Rx] Past Medical History HEENT History: Reports: Other (See Below) Other HEENT History: uses reading glasses Cardiovascular History: Reports: None Respiratory History: Reports: Asthma Other Respiratory History: allergy induced Gastrointestinal History: Reports: Colon Polyp, Diverticulosis, GERD Other Gastrointestinal History: hx diverticulitis Genitourinary History: Reports: None Musculoskeletal History: Reports: None Neurological History: Reports: None Psychiatric History: Reports: None Endocrine/Metabolic History: Reports: None Hematologic History: Reports: None Immunologic History: Reports: None Oncologic (Cancer) History: Reports: None Dermatologic History: Reports: None - Infectious Disease History Infectious Disease History: Reports: Chicken Pox - Past Surgical History Head Surgeries/Procedures: Reports: None HEENT Surgical History: Reports: None Cardiovascular Surgical History: Reports: None Respiratory Surgical History: Reports: None GI Surgical History: Reports: Colonoscopy, EGD Male Surgical History: Reports: Vasectomy Endocrine Surgical History: Reports: None Neurological Surgical History: Reports: None Musculoskeletal Surgical History: Reports: Arthroscopic Knee, Other (See Below) Other Musculoskeletal Surgeries/Procedures:: 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 ED EXAM, GENERAL - Physical Exam Exam: See Below Free Text/Narrative:: My physical exam is in the HPI Course - Vital Signs Last Recorded V/S: Last Vital Signs Temp 36.8 C 01/05/21 21:15 Pulse 97 01/05/21 21:15 Resp 18 01/05/21 21:15 BP 120/82 01/05/21 21:15 Pulse Ox 93 L 01/05/21 21:15 - Orders/Labs/Meds Orders: Active Orders 24 hr Category Date Time Status Sodium Chloride 0.9% [Saline Flush] Med 01/05/21 21:28 Active 10 ml FLUSH ASDIRECTED PRN Sodium Chloride 0.9% [Saline Flush] Med 01/05/21 21:28 Active 2.5 ml FLUSH ASDIRECTED PRN Saline Lock Insert [OM.PC] Stat Oth 01/05/21 21:28 Ordered Medication Orders Sodium Chloride (Sodium Chloride 0.9% 10 Ml Syringe) 10 ml FLUSH ASDIRECTED PRN PRN Reason: Keep Vein Open Sodium Chloride (Sodium Chloride 0.9% 2.5 Ml Syringe) 2.5 ml FLUSH ASDIRECTED PRN PRN Reason: Keep Vein Open Labs: Laboratory Tests 01/05/21 01/05/21 Range/Units 21:30 21:30 WBC 7.48 (4.0-11.0) K/uL RBC 4.85 (4.50-5.90) M/uL Hgb 15.4 (13.0-17.0) g/dL Hct 43.9 (38.0-50.0) % MCV 90.5 (80.0-98.0) fL MCH 31.8 (27.0-32.0) pg MCHC 35.1 (31.0-37.0) g/dL RDW Std Deviation 46.6 (28.0-62.0) fl RDW Coeff of Dhruv 14 (11.0-15.0) % Plt Count 230 (150-400) K/uL MPV 9.10 (7.40-12.00) fL Neut % (Auto) 77.2 (48.0-80.0) % Lymph % (Auto) 12.0 L (16.0-40.0) % [place] % (Auto) 8.3 (0.0-15.0) % Eos % (Auto) 2.4 (0.0-7.0) % Baso % (Auto) 0.1 (0.0-1.5) % Neut # (Auto) 5.8 H (1.4-5.7) K/uL Lymph # (Auto) 0.9 (0.6-2.4) K/uL [place] # (Auto) 0.6 (0.0-0.8) K/uL Eos # (Auto) 0.2 (0.0-0.7) K/uL Baso # (Auto) 0.0 (0.0-0.1) K/uL Nucleated RBC % 0.0 /100WBC Nucleated RBCs # 0 K/uL Sodium 137 (136-148) mmol/L Potassium 3.9 (3.5-5.1) mmol/L Chloride 103 (98-107) mmol/L Carbon Dioxide 22.1 (21.0-32.0) mmol/L BUN 15 (7.0-18.0) mg/dL Creatinine 1.1 (0.8-1.3) mg/dL Est Cr Clr Drug Dosing 72.55 mL/min Estimated GFR (MDRD) > 60.0 ml/min Glucose 98 (74-106) mg/dL Calcium 8.5 (8.5-10.1) mg/dL Magnesium 1.9 (1.8-2.4) mg/dL Total Bilirubin 0.7 (0.2-1.0) mg/dL AST 25 (15-37) IU/L ALT 28 (14-63) IU/L Alkaline Phosphatase 75 (46-116) U/L Total Protein 7.1 (6.4-8.2) g/dL Albumin 3.7 (3.4-5.0) g/dL Globulin 3.4 (2.6-4.0) g/dL Albumin/Globulin Ratio 1.1 (0.9-1.6) Lipase 81 (73-393) U/L Meds: Medications Generic Name Dose Route Start Last Admin Trade Name Freq PRN Reason Stop Dose Admin Sodium Chloride 10 ml 01/05/21 21:28 Sodium Chloride 0.9% 10 Ml Syringe FLUSH ASDIRECTED PRN Keep Vein Open Sodium Chloride 2.5 ml 01/05/21 21:28 Sodium Chloride 0.9% 2.5 Ml Syringe FLUSH ASDIRECTED PRN Keep Vein Open Discontinued Medications Generic Name Dose Route Start Last Admin Trade Name Kelly PRN Reason Stop Dose Admin Sodium Chloride 1,000 mls @ 1,000 mls/hr 01/05/21 21:30 01/05/21 21:33 Normal Saline IV 01/05/21 22:29 1,000 mls/hr .Bolus ONE Administration Iopamidol 100 ml 01/05/21 22:26 01/05/21 22:27 Iopamidol 755 Mg/Ml 500 Ml Multipack Bottle IVPUSH 01/05/21 22:27 100 ml ONETIME STA Administration Ondansetron HCl 4 mg 01/05/21 21:28 01/05/21 21:33 Ondansetron 4 Mg/2 Ml Sdv IVPUSH 01/05/21 21:29 4 mg ONETIME ONE Administration Departure - Departure Time of Disposition: 23:27 Disposition: Home, Self-Care 01 Condition: Good Clinical Impression: Gastroenteritis - Discharge Information Prescriptions: Ondansetron [Zofran ODT] 4 mg PO Q6H PRN #10 tab.dis PRN Reason: Nausea Instructions: Viral Gastroenteritis, Adult, [id number] Referrals: Giovanni Beatty MD [Primary Care Provider] - Forms: ED Department Discharge Additional Instructions: Fill the nausea prescription if you feel like you are getting needed and use [id number] Imodium for the diarrhea. Replace electrolytes with Gatorade or Pedialyte. [facility] - Primary Care [address] [place] [address] [place] [address] The following information is given to patients seen in the emergency department who are being discharged to home. This information is to outline your options for follow-up care. We provide all patients seen in our emergency department with a follow-up referral. The need for follow-up, as well as the timing and circumstances, are variable depending upon the specifics of your emergency department visit. If you don't have a primary care physician on staff, we will provide you with a referral. We always advise you to contact your personal physician following an emergency department visit to inform them of the circumstance of the visit and for follow-up with them and/or the need for any referrals to a consulting specialist. The emergency department will also refer you to a specialist when appropriate. This referral assures that you have the opportunity for follow-up care with a specialist. All of these measure are taken in an effort to provide you with optimal care, which includes your follow-up. Under all circumstances we always encourage you to contact your private physician who remains a resource for coordinating your care. When calling for follow-up care, please make the office aware that this follow-up is from your recent emergency room visit. If for any reason you are refused follow-up, please contact the [facility] Emergency Department at and asked to speak to the emergency department charge nurse. Sepsis Event Note (ED) - Evaluation Sepsis Screening Result: No Definite Risk - Focused Exam Vital Signs: Vital Signs Temp Pulse Resp BP Pulse Ox 01/05/21 21:15 36.8 C 97 18 120/82 93 L - My Orders Last 24 Hours: My Active Orders 01/05/21 21:28 Sodium Chloride 0.9% [Saline Flush] 10 ml FLUSH ASDIRECTED PRN Sodium Chloride 0.9% [Saline Flush] 2.5 ml FLUSH ASDIRECTED PRN Saline Lock Insert [OM.PC] Stat - Assessment/Plan Last 24 Hours: My Active Orders 01/05/21 21:28 Sodium Chloride 0.9% [Saline Flush] 10 ml FLUSH ASDIRECTED PRN Sodium Chloride 0.9% [Saline Flush] 2.5 ml FLUSH ASDIRECTED PRN Saline Lock Insert [OM.PC] Stat
[2021-01-05 22:00] LABS: BLOOD UREA NITROGEN,BUN 15 mg/dL (7.0-18.0); CARBON DIOXIDE,CO2 22.1 mmol/L (21.0-32.0); CHLORIDE,CL 103 mmol/L (98-107); GLUCOSE RANDOM 98 mg/dL (74-106); LIPASE 81 U/L (73-393); POTASSIUM,K 3.9 mmol/L (3.5-5.1); SODIUM,NA 137 mmol/L (136-148)
[2021-01-05] MEDS ORDERED: Iopamidol 755 MG/ML 500 ML Multipack Bottle IVPUSH STA (22:26)
--- NOTE | 2021-01-05 23:21 | CT ---
Indication: Severe abdominal pain, history of diverticulitis Technique: Contrast enhanced axial CT imaging through the abdomen and pelvis. 100 mL Isovue 370 contrast agent was administered intravenously. Sagittal and coronal reconstructions are provided. Comparison: CT abdomen pelvis without contrast 11/19/2016 Findings: No abnormalities are demonstrated relating to the liver, gallbladder, spleen, pancreas, adrenal glands, and kidneys. The portal vein is patent. The abdominal aorta is normal in caliber. There is no abdominal or pelvic lymphadenopathy. The urinary bladder is unremarkable. The stomach and duodenum are unremarkable. There is no small bowel wall thickening or abnormal distention. The appendix is noninflamed. Diverticulosis is noted in the sigmoid colon. There is no appreciable clinical thickening or pericolonic edema. Fluid is noted in the distal colon, consistent with diarrhea. Degenerative disc disease is noted at L5-S1. The osseous structures are otherwise unremarkable. Stable scarring is noted in the lung bases. Impression: Fluid in the distal colon, consistent with diarrhea. Sigmoid colon diverticulosis without convincing evidence of acute diverticulitis. Otherwise no acute abnormality. Please note that all CT scans at this facility use dose modulation, iterative reconstruction, and/or weight-based dosing when appropriate to reduce radiation dose to as low as reasonably achievable. Dictated by Prabhu Suarez MD @ 01/05/2021 11:19:[address] Prabhu Suarez @ Jan 05 2021 11:19PM
[2021-01-06 00:14] VITALS: BP 111/66; PULSE 81
== END 2021-01-05 23:38 | disposition home or self-care (01) ==
LOC: MW.ED 21:07
DX: K52.9 Noninfective gastroenteritis and colitis, unspecified (principal); K21.9 Gastro-esophageal reflux disease without esophagitis; Z88.1 Allergy status to other antibiotic agents; Z79.899 Other long term (current) drug therapy
CPT/HCPCS: 36415; 74177; 80053; 83690; 83735; 85025; 96374; 99284; J2405; J7030; Q9967

== ENCOUNTER 2023-03-16 08:16 | Day surgery (SDC) | payer BC ==
[2023-03-16] MEDS ORDERED: propofoL 50 ML ONE (09:13)
[2023-03-16] MEDS ORDERED: fentaNYL 100 MCG/2 ML SDV ONE (09:13)
[2023-03-16] MEDS ORDERED: Lidocaine 2% 5 ML SDV ONE (09:50)
[2023-03-16 11:03] VITALS: BP 115/71; PULSE 67
== END 2023-03-16 11:09 | disposition home or self-care (01) ==
LOC: MW.SDS 08:16
PROVIDERS: ATTEND Surgery
DX: K63.5 Polyp of colon (principal); K64.8 Other hemorrhoids; K57.30 Diverticulosis of large intestine without perforation or abscess without bleeding; K21.9 Gastro-esophageal reflux disease without esophagitis; J45.909 Unspecified asthma, uncomplicated; Z88.1 Allergy status to other antibiotic agents; Z79.899 Other long term (current) drug therapy; Z98.890 Other specified postprocedural states
CPT/HCPCS: 45380; 45385; J2704; J7120; 00811; J3010; J3490